=== PATIENT | male | born 1965 | race Caucasian/White ===

== ENCOUNTER 2017-02-16 05:19 | Day surgery (SDC) | payer OTHER ==
[2017-02-16] MEDS ORDERED: Dextrose 5%-0.45% NaCl 1,000 ML IV SCH (06:00)
[2017-02-16] MEDS ORDERED: Sodium Chloride 0.9% 10 ML Syringe FLUSH PRN (06:00)
[2017-02-16] MEDS ORDERED: fentaNYL 100 MCG/2 ML SDV ONE (06:17)
[2017-02-16] MEDS ORDERED: Midazolam 1 MG/ML 2 ML SDV ONE (06:17)
[2017-02-16] MEDS ORDERED: fentaNYL 100 MCG/2 ML SDV IV ONE ×4 (06:36→15:54)
[2017-02-16] MEDS ORDERED: Midazolam 1 MG/ML 2 ML SDV IV ONE ×7 (06:37→15:54)
[2017-02-16 08:45] VITALS: BP 113/69
--- NOTE | 2017-02-16 09:57 | OR ---
DATE: 02/16/2017 PROCEDURE: Total colonoscopy. INSTRUMENT USED: CF-H180AL Olympus video colonoscope. Olympus distal detachment device. PREMEDICATIONS: Fentanyl 125 mcg intravenous, Versed 4 mg intravenous. Nasal 2 L O2 cannula. The procedure was done under pulse oximetry, BP recording, and radiographer cardiac catheterization. The patient with chronic constipation progressive in nature not responsive to medical measures and also has had some perianal irritation. Colonoscopic examination is done for detection of any polypoid lesions and removal, endoscopic hemostasis therapy if needed. DESCRIPTION OF PROCEDURE: Initial rectal exam was unremarkable. Rigid anoscopy was normal. The colonoscope was passed with ease. Scattered diverticula of the distal left colon. The scope was passed with ease up to the ileocecal area, photographs were taken of the normal-appearing cecum, identified by appendiceal orifice and double-bulged ileocecal folds. No bleeding was noted from any of the visualized areas at the commencement of the examination. No stricture. No vascular ectasia. No large isolated ulcerations seen. No evidence of diffuse inflammatory bowel disease in the form of friability, contact bleeding, or ulcerations. No polyp or tumor mass identified. Probing the proximal sides of folds and flexures, using adequate distention and clearing up the stool material, withdrawal of the scope was made, cecum to rectum time over 6 minutes. No bleeding was noted from any of the visualized areas at the completion of examination. IMPRESSION: Diverticulosis. The patient tolerated the procedure well. [facility] /[id number]
== END 2017-02-16 08:50 | disposition home or self-care (01) ==
LOC: DL.ENDO 05:19
PROVIDERS: ATTEND Internal Medicine Gastroenterology
DX: K57.30 Diverticulosis of large intestine without perforation or abscess without bleeding (principal); E66.9 Obesity, unspecified; Z98.890 Other specified postprocedural states; Z79.899 Other long term (current) drug therapy
CPT/HCPCS: 45378; J2250; J3010; J7042